=== PATIENT | male | born 1995 | race Caucasian/White ===

== ENCOUNTER 2022-08-26 13:18 | Emergency (ER) | payer MEDICAID, OTHER ==
[~2022-08-26] VITALS: Ht 157.5 cm; Wt 90.7 kg
[2022-08-26 13:19] VITALS: BP 129/63
[2022-08-26] MEDS ORDERED: HYDROcodone/APAP 5/325 MG 1 TAB TAB PO ONE (13:45)
[2022-08-26] MEDS ORDERED: IBUPROFEN 600 MG TAB PO ONE (13:45)
--- NOTE | 2022-08-26 13:54 | NUR ---
27YO MALE PT C/O R KNEE PAIN XYESTERDAY. REPORTS ONSET S/P PLAYING SOCCER AND HEARING A "POP". SHARP PAIN ON BEARING WEIGHT. KNEE W/O VISIBLE INJURY OR DEFORMITY. DENIES NUMBING, LOSS OF SENSATION OR TAKING MEDICATION. PT AAOX4, AMB W/ STEADY GAIT HX:DENIES NKA
[2022-08-26] MEDS ORDERED: NAPR-54 PO (14:39)
--- NOTE | 2022-08-26 14:52 | NUR ---
LAVELLE WRAP APPLIED TO R KNEE X 1. CRUTCHES GIVEN AND PT RETURNED SAFE DEMONSTRATION.
[2022-08-26 14:58] VITALS: BP 127/63
--- NOTE | 2022-08-26 14:58 | NUR ---
Patient discharged with v/s stable. Written and verbal after care instructions FOR KNEE EFFUSION AND SPRAIN given and explained. Patient alert, oriented and verbalized understanding of instructions. Ambulatory USING CRUTCHES. All questions addressed prior to discharge. ID band removed. Patient advised to follow up with PMD. Rx of NAPROXEN given. Opportunity to ask questions provided and answered. CRUTCHES AND WORK NOTE PROVIDED
--- NOTE | 2022-08-26 15:02 | NUR ---
The patient's care was reviewed and supervised by ED Agency Nurse 9, RN, RN.
== END 2022-08-26 14:55 | disposition home or self-care (01) ==
LOC: MED 13:18
DX: S83.8X1A Sprain of other specified parts of right knee, initial encounter (principal); Z79.899 Other long term (current) drug therapy; W21.02XA Struck by soccer ball, initial encounter; Y93.66 Activity, soccer; Y92.89 Other specified places as the place of occurrence of the external cause; Y99.8 Other external cause status
CPT/HCPCS: 73562; 99283

== ENCOUNTER 2023-05-16 17:06 | Emergency (ER) | payer SELFPAY ==
[~2023-05-16] VITALS: Ht 165.1 cm; Wt 93.2 kg
[~2023-05-16 17:06] MED LIST: NAPR-54 PO
[2023-05-16 17:09] VITALS: BP 142/85; PULSE 76; RESP 16; TEMP 97.9; O2SAT 99
[2023-05-16] MEDS: FLUORESCEIN OPTH STRIP 1 MG OP ONE (18:12)
[2023-05-16] MEDS: TETRACAINE HCL/PF 0.5% OPTH 4 ML BTL OP ONE (18:13)
[2023-05-16] MEDS ORDERED: CILOS RIGHT EYE (18:50)
[2023-05-16] MEDS ORDERED: IBUP-1842 PO (18:50)
[2023-05-16 19:04] VITALS: BP 135/85; PULSE 76; RESP 16; TEMP 97.9; O2SAT 99
== END 2023-05-16 19:04 | disposition home or self-care (01) ==
LOC: MED 17:06
DX: T15.01XA Foreign body in cornea, right eye, initial encounter (principal); Z79.899 Other long term (current) drug therapy; X58.XXXA Exposure to other specified factors, initial encounter; Y92.89 Other specified places as the place of occurrence of the external cause; Y93.89 Activity, other specified; Y99.8 Other external cause status
CPT/HCPCS: 99283